=== PATIENT | female | born 1975 | race Caucasian/White ===

== ENCOUNTER 2016-08-13 14:24 | Emergency (ER) | payer MEDICAID ==
[~2016-08-13] VITALS: Ht 139.7 cm; Wt 76.2 kg
[2016-08-13 14:30] VITALS: BP 141/81
--- NOTE | 2016-08-13 15:28 | NUR ---
PT TAKEN TO BED 6
--- NOTE | 2016-08-13 15:30 | NUR ---
41/F BIB FAMILY C/O LETHARGIC, GENERALIZED BODYACHES, DIZZINESS X 2 WKS NON COMPLIANT WITH HTN MEDS, HX OF HTN, ANXIETY.PT DENIES N/V/D; SKIN IS PINK/WARM/DRY; AAOX4 WITH EVEN AND STEADY GAIT; LUNGS CLEAR BL; HR EVEN AND REGULAR; PT DENIES ANY FEVER, CP, SOB, OR COUGH AT THIS TIME; PATIENT STATES PAIN OF 0/10 AT THIS TIME; VSS; PATIENT POSITIONED FOR COMFORT; HOB ELEVATED; BEDRAILS UP X2; BED DOWN. ER MD MADE AWARE OF PT STATUS.
[2016-08-13] MEDS ORDERED: MECLIZINE 25 MG TAB PO ONE (16:20)
--- NOTE | 2016-08-13 16:20 | NUR ---
ER MD DR FRITZ EVALUATING PT AT BEDSIDE
[2016-08-13 17:07] VITALS: BP 107/68
--- NOTE | 2016-08-13 17:07 | NUR ---
Patient discharged with v/s stable. Written and verbal after care instructions given and explained. Patient alert, oriented and verbalized understanding of instructions. Ambulatory with steady gait. All questions addressed prior to discharge. ID band removed. Patient advised to follow up with PMD. Rx of ATARAX & MECLIZINE HYDROCHLORIDE given. Patient educated on indication of medication including possible reaction and side effects. Opportunity to ask questions provided and answered.
== END 2016-08-13 17:07 | disposition home or self-care (01) ==
LOC: MED 14:24
DX: H81.399 Other peripheral vertigo, unspecified ear (principal); F41.9 Anxiety disorder, unspecified; K21.9 Gastro-esophageal reflux disease without esophagitis; I10 Essential (primary) hypertension; Z88.0 Allergy status to penicillin; Z98.890 Other specified postprocedural states; Z90.710 Acquired absence of both cervix and uterus
CPT/HCPCS: 36415; 80053; 81002; 81025; 82948; 85025; 99284; J8597

== ENCOUNTER 2016-12-31 20:03 | Emergency (ER) | payer MEDICAID ==
[~2016-12-31] VITALS: Ht 139.7 cm; Wt 68.0 kg
[2016-12-31 20:09] VITALS: BP 150/90
--- NOTE | 2016-12-31 20:27 | NUR ---
PT TAKEN TO XRAY FROM THE LOBBY
--- NOTE | 2016-12-31 20:33 | NUR ---
PT RETURN FROM XRAY TO LOBBY
--- NOTE | 2016-12-31 20:45 | NUR ---
41Y/F PT. PRESENTS TO ED WITH C/O RT ARM , SHOULDER PAIN, S/P THE PATIO UMBRELLA FELL ON HER A FEW (5) DAYS AGO. AAO X4, AMBULATORY WITH STEADY GAIT. LT. ARM PAIN, NO APPARENT INJURY. SKIN WARM AND DRY. C/O PAIN 02/17, VSS, ER MADE AWARE OF PT. STATUS.
--- NOTE | 2016-12-31 21:18 | NUR ---
PT TAKEN TO BED 5
--- NOTE | 2016-12-31 21:19 | NUR ---
PT MOVED TO OVERFLOW
--- NOTE | 2016-12-31 21:24 | NUR ---
WILLA MÁRQUEZ EVALUATING PATIENT
[2016-12-31] MEDS ORDERED: HYDROcodone/APAP 5/325 MG 1 TAB TAB PO ONE (21:30)
--- NOTE | 2016-12-31 21:36 | NUR ---
PT RETURN FROM 2ND XRAY
--- NOTE | 2016-12-31 22:10 | NUR ---
Patient discharged with v/s stable. Written and verbal after care instructions given and explained. Patient alert, oriented and verbalized understanding of instructions. Ambulatory with to car. All questions addressed prior to discharge. ID band removed. Patient advised to follow up with PMD. Rx of NORCO 5/325 MG given. Patient educated on indication of medication including possible reaction and side effects. Opportunity to ask questions provided and answered.
[2016-12-31 22:28] VITALS: BP 140/85
== END 2016-12-31 22:10 | disposition home or self-care (01) ==
LOC: MED 20:03
DX: M25.511 Pain in right shoulder (principal); S49.91XA Unspecified injury of right shoulder and upper arm, initial encounter; W20.8XXA Other cause of strike by thrown, projected or falling object, initial encounter; Y93.89 Activity, other specified; Y92.89 Other specified places as the place of occurrence of the external cause; Y99.8 Other external cause status
CPT/HCPCS: 73000; 73030; 99284

== ENCOUNTER 2018-06-21 18:37 | Emergency (ER) | payer MEDICAID ==
[~2018-06-21] VITALS: Ht 157.5 cm; Wt 73.3 kg
[2018-06-21 18:49] VITALS: BP 138/100
--- NOTE | 2018-06-21 18:53 | NUR ---
43 YO F BIB W/ C/O LEFT ARM PAIN X 1 WEEK. PT TOOK MOTRIN YESTERDAY W/O RELIEF. LEFT ARM PRESENTS W/ LARGE AREA OF SWELLING NEAR THE ELBOW. DENIES INJURY. CAP REFILL LESS THAN 3 SEC, PULSES PALPABLE, COLOR APPROPRIATE FOR ETHNICITY OF EFFCTED EXTREMITY. LIMITED ROM, STATES THE PAIN IS IMPROVED WHEN SHE HOLDS HER ARM ACROSS HER CHEST.
--- NOTE | 2018-06-21 19:05 | NUR ---
ASSUMED CARE OF PT AT THIS TIME. PT AWAITS MD CUMMINS. DEBBIE. VSS. WILL CONTINUE TO MONITOR.
--- NOTE | 2018-06-21 19:12 | NUR ---
REPORT GIVEN TO PENG AYALA FOR CONTINUATION OF CARE. PATIENT STABLE AT THIS TIME.
[2018-06-21] MEDS ORDERED: IBUPROFEN 800 MG TAB PO ONE (19:35)
[2018-06-21 20:40] VITALS: BP 140/94
== END 2018-06-21 20:40 | disposition home or self-care (01) ==
LOC: MED 18:37
DX: M25.522 Pain in left elbow (principal); K21.9 Gastro-esophageal reflux disease without esophagitis; I10 Essential (primary) hypertension; Z88.0 Allergy status to penicillin
CPT/HCPCS: 73080; 93971; 99284; Q0092

== ENCOUNTER 2020-08-02 20:34 | Emergency (ER) | payer MEDICAID ==
[~2020-08-02] VITALS: Ht 139.7 cm; Wt 73.9 kg
[2020-08-02 20:49] VITALS: BP 162/111
--- NOTE | 2020-08-02 20:55 | NUR ---
PT AMBULATED TO ED BED 1 WITH STEADY GAIT
--- NOTE | 2020-08-02 20:56 | NUR ---
45 Y/O FEMALE, AAOX4, C/O ITCHINESS ALL OVER HER BODY X 1 DAY, NO SOB, NO DISTRESS, DENIES PAIN, SAFETY MEASURES IN PLACE, V/S TAKEN, URINE SAMPLE TAKEN. ER DR WILL SEE PATIENT.
[2020-08-02] MEDS ORDERED: diphenhydrAMINE 50 MG/ML VIAL IM ONE (21:20)
[2020-08-02] MEDS ORDERED: predniSONE 20 MG TAB PO ONE (21:20)
--- NOTE | 2020-08-02 21:35 | NUR ---
DUE MEDS GIVEN ORDERED, TOLERATED WELL, NO A/R NOTED.
[2020-08-02 21:52] VITALS: BP 154/90
--- NOTE | 2020-08-02 22:12 | NUR ---
Patient discharged with v/s stable. Written and verbal after care instructions given and explained. Patient alert, oriented and verbalized understanding of instructions. Ambulatory with steady gait. All questions addressed prior to discharge. ID band removed. Patient advised to follow up with PMD. Rx of BENADRYL AND PREDNISONE given. Patient educated on indication of medication including possible reaction and side effects. Opportunity to ask questions provided and answered.
== END 2020-08-02 21:52 | disposition home or self-care (01) ==
LOC: MED 20:34
DX: L50.9 Urticaria, unspecified (principal); K21.9 Gastro-esophageal reflux disease without esophagitis; I10 Essential (primary) hypertension; Z98.890 Other specified postprocedural states; Z88.0 Allergy status to penicillin
CPT/HCPCS: 96372; 99283; J1200; J7512

== ENCOUNTER 2021-05-16 18:45 | Emergency (ER) | payer MEDICAID ==
[~2021-05-16] VITALS: Ht 144.8 cm; Wt 76.7 kg
[2021-05-16 20:06] VITALS: BP 156/93
--- NOTE | 2021-05-16 20:14 | NUR ---
PT BACK IN LOBBY.
--- NOTE | 2021-05-16 20:47 | NUR ---
PT TAKEN TO BED 3
--- NOTE | 2021-05-16 20:50 | NUR ---
PATIENT REPORTS PAIN TO RIGHT SHOULDER ONSET ABOUT A WEEK. STATES NO TRAUMA ONLY RECENT PHYSICAL ACTIVITY WAS MOVING HER BED. SINCE THEN PAIN HAS INCREASED. JUDY COMPLAINS OF PAIN TO RIGHT SHOLDER RADIATING UP TO NECK
[2021-05-16] MEDS ORDERED: KETOROLAC 60 MG/2 ML VIAL IM ONE (21:30)
--- NOTE | 2021-05-16 21:40 | NUR ---
Dr. Garay examining patient.
[2021-05-16] MEDS ORDERED: IBUP-2213 PO (21:53)
[2021-05-16] MEDS ORDERED: ACET-8386 PO (21:53)
--- NOTE | 2021-05-16 21:59 | NUR ---
CLEARED FOR DISHCARGE AT THIS TIME. ADVISED TO FOLLOW UP WITH PCP AND RETURN IF CONDITION WORSENS. RX SENT HOME WITH PATIENT. NO OTHER QUESTION OR CONCERNS FOLLOWING DISHCARGE TEACHING.
[2021-05-16 22:00] VITALS: BP 147/86
== END 2021-05-16 21:59 | disposition home or self-care (01) ==
LOC: MED 18:45
DX: M25.511 Pain in right shoulder (principal); Z88.0 Allergy status to penicillin
CPT/HCPCS: 73030; 96372; 99283; J1885; Q0092

== ENCOUNTER 2023-03-17 17:04 | Emergency (ER) | payer MEDICAID ==
[~2023-03-17 17:04] MED LIST: ACET-8905 PO; IBUP-2213 PO
== END 2023-03-17 18:14 | disposition left against medical advice (07) ==
LOC: MED 17:04
DX: Z53.21 Procedure and treatment not carried out due to patient leaving prior to being seen by health care provider (principal)